=== PATIENT | female | born 1970 | race Caucasian/White ===

== ENCOUNTER 2016-08-17 12:04 | Emergency (ER) | payer OTHER, MEDICAID ==
[2016-08-17] MEDS ORDERED: IOPAMIDOL 300 (61%) 150 ML VIAL IV ONE (12:05)
[2016-08-17] MEDS ORDERED: PANTOPRAZOLE SODIUM 40 MG VIAL IV ONE (13:26)
[2016-08-17] MEDS ORDERED: ONDANSETRON 4 MG/2ML 2 ML VIAL ONE (13:26)
[2016-08-17] MEDS ORDERED: SODIUM CHLORIDE 0.9% 1,000 ML ONE (13:26)
[2016-08-17 13:31] LABS: HCG,QUALITATIVE URINE NEGATIVE
[2016-08-17 13:35] LABS: ABSOLUTE NEUTROPHIL COUNT 4.1 K/mm3 (1.8-7.7); BASO % 0.4 % (0.2-1.0); EOS # 0.1 (0.0-0.5); EOS % 0.9 % (0.9-2.9); HEMOGLOBIN 11.6 gm/l (12.0-16.0); IMM NEUT% 0.2 % (0-1); LYMPH # 4.2 (1.0-4.8); LYMPH % 46.5 % (15-45); MEAN CELL VOLUME 83.3 fl (81.0-99.0); MEAN CORPUSCULAR HEMOGLOBIN 26.1 pg (27.0-31.0); MEAN CORPUSCULAR HGB CONC 31.4 g/dl (33.0-37.0); MEAN PLATELET VOLUME 13.1 fl (7.4-10.4); MONO # 0.6 (0.0-0.8); MONO % 6.5 % (4-12); NEUT % 45.5 % (43-75); PLATELET COUNT 303 K/mm3 (130-400); RED CELL DISTRIBUTION WIDTH 18.5 % (11.5-14.5)
[2016-08-17 13:53] LABS: ALB/GLOB RATIO 1.4 (>1.0); ALBUMIN 3.9 gm/dL (3.5-5.7); CALCIUM 9.3 mg/dL (8.6-10.3); SPECIFIC GRAVITY 1.025 (1.001-1.030); URINE BILIRUBIN NEGATIVE (NEGATIVE); URINE BLOOD TRACE (NEGATIVE); URINE GLUCOSE (UA) NEGATIVE (NEGATIVE); URINE LEUKOCYTE ESTERASE TRACE (NEGATIVE); URINE NITRITE NEGATIVE (NEGATIVE); URINE PROTEIN 1+ (NEGATIVE); URINE UROBILINOGEN NORMAL (0-1 mg/dl)
[2016-08-17 13:54] LABS: URINE APPEARANCE SL CLOUDY; URINE COLOR AMBER
[2016-08-17 14:02] LABS: URINE WBC 15-20 /hpf
[2016-08-17 14:03] LABS: URINE BACTERIA 3+; URINE EPITHELIAL CELLS 20-30 /hpf
[2016-08-17] MEDS ORDERED: DIPHENHYDRAMINE HCL 50 MG/1 ML VIAL ONE (14:10)
[2016-08-17] MEDS ORDERED: MORPHINE SULFATE 4 MG/ML SYRINGE ONE ×2 (14:10→15:07)
[2016-08-17 14:29] LABS: URINE BILIRUBIN 1+ (NEGATIVE); URINE BLOOD NEGATIVE (NEGATIVE); URINE GLUCOSE (UA) NEGATIVE (NEGATIVE); URINE LEUKOCYTE ESTERASE 1+ (NEGATIVE); URINE NITRITE NEGATIVE (NEGATIVE); URINE PROTEIN 1+ (NEGATIVE); URINE UROBILINOGEN 1 mg/dL (0-1 mg/dl)
[2016-08-17 14:30] LABS: URINE APPEARANCE HAZY; URINE COLOR AMBER
[2016-08-17 14:53] LABS: URINE BACTERIA TRACE; URINE MUCUS 2+
[2016-08-17 14:54] LABS: URINE CASTS FEW HYALINE CASTS /lpf
--- NOTE | 2016-08-17 15:52 | CT ---
ABD/PELVIS W/ CON COMPARISON: CT abdomen and pelvis, 05/30/2016 HISTORY: Diffuse abdominal pain in a 45-year-old female. Technique: Abnormal contrast. Intravenous injection 125 mL Isovue 300 and. Using a [employer] Aquilion [address] scanner, images were obtained from the diaphragm to the floor the pelvis. An automated dose reduction technique was used to minimize patient radiation dose. Dose information: CTDIvol (mGy): DLP(mGycm): FINDINGS: Lung bases: Normal. Inferior mediastinum and heart: Normal. Liver: Normal. Gallbladder: Cholecystectomy. Bile ducts: Normal. Pancreas: Normal. Spleen: Normal. Adrenal glands: Normal. Kidneys: Normal. Ureters: Normal Urinary bladder: Normal. Uterus and adnexa: Hysterectomy and oophorectomies. Blood vessels: Normal Lymph nodes: Normal Stomach: Normal Duodenum: Normal Small intestine: Normal Appendix: Appendectomy. Colon: Normal Abdominal wall and supporting musculature: Normal Bones: Osteopenia. Old moderate compression fractures of the superior endplates of T11 and T12. Moderate to severe degenerative changes in the lumbar spine, with severe disc narrowing at L4-5. IMPRESSION: 1. No acute finding in the abdomen and the pelvis. 2. Incidental findings include cholecystectomy, appendectomy, hysterectomy and oophorectomies, osteoporosis with old mild compression fractures of T11 and T12, and spondylosis in the lumbar spine. The report was sent to the emergency department electronic medical record system 08/17/2016 at 15:53
== END 2016-08-17 16:14 | disposition home or self-care (01) ==
LOC: ED 12:04
DX: R10.9 Unspecified abdominal pain (principal); R11.10 Vomiting, unspecified
CPT/HCPCS: 83690; 81025; 85025; 87086; 80053; 81001 ×2; 74177; 96375 ×3; 96376; 99284 ×2; 96374; 51701; J1200; J2270 ×2; C9113; J2405; J7030; Q9967